=== PATIENT | female | born 1945 | race Caucasian/White ===

== ENCOUNTER 2017-01-18 14:31 | Outpatient (CLI) | payer OTHER ==
[2016-09-30 12:08] VITALS: BMI 19.7
--- NOTE | 2017-01-18 15:17 | US ---
EXAM: ULTRASOUND CAROTID DUPLEX, BILATERAL HISTORY: TIA, dizziness FINDINGS: Merino-scale ultrasound, color Doppler and spectral analysis was performed. Velocities are in meters per second. By merino scale and color Doppler imaging, there were regions of heterogeneous plaque formation identi fied within the carotid bulbs and internal carotid arteries. These regions of plaque appeared to re main less than 50% vessel diameter. RIGHT: External carotid artery peak systolic velocity: 1.1 Common carotid artery peak systolic velocity/end diastolic velocity: 0.7/0.2 Internal carotid artery peak systolic velocity: 1.0 ICA/CCA peak systolic velocity ratio: 1.4 ICA end diastolic velocity: 0.3 LEFT: External carotid artery peak systolic velocity: 0.9 Common carotid artery peak systolic velocity/end diastolic velocity: 1.0/0.3 Internal carotid artery peak systolic velocity: 1.4 ICA/CCA peak systolic velocity ratio: 1.4 ICA end diastolic velocity: 0.3 The right and left vertebral arteries were antegrade. IMPRESSION: 1. By merino scale and color Doppler imaging, there were regions of heterogeneous plaque formation id entified within the carotid bulbs and internal carotid arteries. These regions of plaque appeared t o remain less than 50% vessel diameter. 2. The left internal carotid artery peak systolic velocity of 1.4 meters per second falls within the moderate range of stenosis. Moderate indicates 50 - 69% vessel diameter. The left ICA/CCA peak sy stolic velocity ratio 1.4 falls within the mild range of stenosis. Mild indicates less than 50% ves sagrario diameter. The ratio appears to better correlate with merino scale and color Doppler imaging findi ngs although correlation with CTA neck can be considered given patient history. 3. No sonographic evidence of hemodynamically significant stenosis within the right carotid system. 4. Both vertebral arteries were antegrade.
== END 2017-01-18 14:32 | disposition home or self-care (01) ==
LOC: RAD 14:31
PROVIDERS: ATTEND Internal Medicine
DX: R42 Dizziness and giddiness (principal); Z86.73 Personal history of transient ischemic attack (TIA), and cerebral infarction without residual deficits

== ENCOUNTER 2017-02-28 06:45 | Outpatient (CLI) ==
[2016-09-30 12:08] VITALS: BMI 19.7
--- NOTE | 2017-02-28 10:32 | ECHO2D ---
Date of Exam: 02/28/17 Ordering Physician: ALAN BUCHANAN Reason for Echo: CHEST PAIN, HYPERTENSION, SOB M-Mode Normal Adult Results LV Dimensions Normal Adult Results AoV Opening excursions >1.6 >1.6 LVEDD-base- 3.5-5.8 3.9 Ao root dimensions 2.0-3.7 3.3 LVESD-base- 3.1-4.6 L. Atrium dimensions 1.9-3.8 4.0 Post. Wall thickness 0.8-1.1 1.0 IV septum (thickness) 0.7-1.2 1.1 Post. Wall excursion 0.72-1.3 Septal motion NORMAL Systolic motion R. Ventricular cavity 1.5-2.0 NORMAL LVEF 60% 59% Paradoxical septal wall motion NORMAL 2-D : MILDLY ENLARGED LEFT ATRIAL CAVITY--NORMAL LEFT VENTRICULAR CONTRACTILITY- -NO EFFUSION, NO THROMBUS, NORMAL LEFT VENTRICLE SIZE M-MODE: MV: NORMAL AV: NORMAL TV: NORMAL PV: CHAMBER SIZE: MILDLY ENLARGED LEFT ATRIAL CAVITY WALL MOTION: NORMAL PERICARDIUM: NORMAL INTERPRETATION: 1. MILDLY ENLARGED LEFT ATRIAL CAVITY 2. NORMAL LEFT VENTRICULAR CONTRACTILITY 3. FLORES LEFT VENTRICLE SIZE MTDD
== END 2017-02-28 06:46 | disposition home or self-care (01) ==
LOC: CAR 06:45
PROVIDERS: ATTEND Internal Medicine
DX: R07.9 Chest pain, unspecified (principal); I10 Essential (primary) hypertension; J44.9 Chronic obstructive pulmonary disease, unspecified
CPT/HCPCS: 93005; 93010

== ENCOUNTER 2017-03-02 06:42 | Outpatient (CLI) ==
[2016-09-30 12:08] VITALS: BMI 19.7
--- NOTE | 2017-03-02 09:22 | STRESSMOD ---
Ordering Physician: ALAN BUCHANAN Date of Test: 03/02/17 Medical History: CHEST PAIN, HTN, SOB, CAD Current Medications: CELEBREX, IMITREX, ESGIC, SOMA, LIBRAX Physical Findings: S1, S2, NO S3 Resting EKG: SINUS RHYTHM, NO ACUTE CHANGES Target Heart Rate: 124/146 STAGE MPH/GRADE HEART RATE BPM BLOOD PRESSURE mmhg RHYTHM S-T SEGMENT UP DOWN SYMPTOMS,COMMENTS At Rest 68 118/62 SR X NONE 1 1.7/0% 100 138/80 SR X NONE 2 1.7/5% 3 1.7/10% 4 2.5/12% 5 3.4/14% 6 4.2/16% 7 5.18% Immediately after 125 150/82 SR X NONE Total Time: 6:31 Maximum Heart Rate Reached: 125 Reason for Termination: FATIGUE 3 MIN POST EXERCISE: HR 85/BPM, BP 122/70 MMHG INTERPRETATION: 97% OXYGEN SATURATION WITH EXERCISE ON ROOM AIR METS 4.0 1. NO EVIDENCE OF ISCHEMIA BY ST-T WAVE CHANGES 2. NO CHEST PAIN OR CHEST DISCOMFORT 3. BLOOD PRESSURE RESPONSE: NORMAL 4. NO ARRHYTHMIAS NORMAL LEFT VENTRICULAR CONTRACTILITY--RESTING AND POST EXERCISE MTDD
--- NOTE | 2017-03-02 10:45 | NM ---
Cardiac Stress Test HISTORY: Chest pain. Hypertension. Chronic obstructive pulmonary disease. COMPARISON: 04/09/2015. TECHNIQUE: Resting: The patient was injected with 4.1 mCi of 99m technetium Sestamibi (Cardiolite) intravenous ly after which a "resting" SPECT study of the heart was performed. Stress: The patient was stressed using a Naseem protocol and at the appropriate time injected with 2 5.9 mCi of 99m technetium Sestamibi (Cardiolite) after which a "stress" SPECT study of the heart was performed. Gated images of the heart were also obtained to assess wall motion and calculate ejectio n fraction. For details of the stress protocol employed, reference is made to the separate report o f the performing physician. FINDINGS: The stress perfusion images demonstrate a generally uniform distribution of activity in t he left ventricular myocardium. The resting perfusion images demonstrate no evidence of significant redistribution/ischemia. The left ventricular ejection fraction (LVEF) is 69%. The previous ejection fraction was 57 %. The left ventricular wall motion is within normal limits. IMPRESSION: 1. Left ventricular myocardial perfusion is within normal limits. 2. The left ventricular ejection fraction (LVEF) is 69%. The previous ejection fraction was 57 %. 3. The left ventricular wall motion is within normal limits.
--- NOTE | 2017-03-02 12:22 | ECHOSTRESS ---
Date of Exam: 03/02/17 Ordering Physician: ALAN BUCHANAN Reason for Echo: CHEST PAIN, HYPERTENSION, SOB, STRESS TEST--NO ISCHEMIA M-Mode Normal Adult Results LV Dimensions Normal Adult Results AoV Opening excursions >1.6 LVEDD-base- 3.5-5.8 Ao root dimensions 2.0-3.7 LVESD-base- 3.1-4.6 L. Atrium dimensions 1.9-3.8 Post. Wall thickness 0.8-1.1 IV septum (thickness) 0.7-1.2 Post. Wall excursion 0.72-1.3 Septal motion Systolic motion R. Ventricular cavity 1.5-2.0 LVEF 60% Paradoxical septal wall motion 2-D: NORMAL LEFT VENTRICULAR CONTRACTILITY--RESTING AND POST EXERCISE M-MODE: MV: AV: TV: PV: CHAMBER SIZE: WALL MOTION: NORMAL LEFT VENTRICULAR CONTRACTILITY--RESTING AND POST EXERCISE PERICARDIUM: INTERPRETATION: 1. NORMAL LEFT VENTRICULAR CONTRACTILITY--RESTING AND POST EXERCISE MTDD
== END 2017-03-02 06:43 | disposition home or self-care (01) ==
LOC: CAR 06:42
PROVIDERS: ATTEND Internal Medicine
DX: R07.9 Chest pain, unspecified (principal); I10 Essential (primary) hypertension; J44.9 Chronic obstructive pulmonary disease, unspecified

== ENCOUNTER 2017-05-19 02:58 | Emergency (ER) | payer OTHER ==
[2017-05-19 03:09] VITALS: BP 176/73; TEMP 98.1
[2017-05-19] MEDS ORDERED: SODIUM CHLORIDE 1,000 ML IV STA (03:20)
[2017-05-19] MEDS ORDERED: DILAUDID 1 MG/ML SYRINGE IVP STA (03:20)
[2017-05-19] MEDS ORDERED: ZOFRAN 4 MG/2 ML IVP STA (03:20)
[2017-05-19 03:33] LABS: BASOPHILS # (AUTO) 0.1 K/uL (0-0.2); BASOPHILS % (AUTO) 0.5 % (0.0-3.0); EOSINOPHILS # (AUTO) 0.2 K/ul (0.0-0.7); EOSINOPHILS % (AUTO) 1.9 % (0.0-7.0); HEMATOCRIT 35.5 % (37.0-47.0); HEMOGLOBIN 12.2 g/dl (12.0-16.0); IMMATURE GRANULOCYTE % (AUTO) 0.3 % (0.0-5.0); LYMPHOCYTES # (AUTO) 2.7 K/uL (0.60-3.4); LYMPHOCYTES % (AUTO) 22.9 (10.0-50.0); MEAN CORPUSCULAR HEMOGLOBIN 32.4 pg (27.0-31.0); MEAN CORPUSCULAR HGB CONC 34.4 (31.8-35.4); MEAN CORPUSCULAR VOLUME 94.4 fl (81.0-99.0); MONOCYTES # (AUTO) 0.8 K/uL (0.4-2.0); MONOCYTES % (AUTO) 6.5 (0-10); NEUTROPHILS # (AUTO) 8.1 K/ul (2.0-6.9); NEUTROPHILS % (AUTO) 67.9; PLATELET COUNT 170 10^3/uL (140-440); RED BLOOD COUNT 3.76 10^6/ul (4.20-5.40); WHITE BLOOD COUNT 11.86 K/ul (4.6-10.2)
[2017-05-19 04:00] LABS: ALANINE AMINOTRANSFERASE 11 U/L (12-78); ALBUMIN 3.7 g/dL (3.4-5.0); ALBUMIN/GLOBULIN RATIO 1.16; ALKALINE PHOSPHATASE 120 U/L (53-141); AMYLASE 60 U/L (25-115); ANION GAP 14.9; ASPARTATE AMINO TRANSFERASE 16 U/L (15-37); BILIRUBIN,TOTAL 0.14 mg/dL (0.00-1.20); BLOOD UREA NITROGEN 8 mg/dL (7-18); CARBON DIOXIDE 23 mmol/L (23-31); CHLORIDE 103 mmol/L (98-107); CREATINE KINASE 56 U/L; CREATININE 0.64 mg/dL (0.60-1.30); GLUCOSE 82 mg/dL (82-115); LIPASE 31 U/L (8-78); POTASSIUM 3.9 mmol/L (3.5-5.10); SODIUM 137 mmol/L (136-145); TOTAL PROTEIN 6.9 g/dL (5.8-8.1)
[2017-05-19 04:04] LABS: ESR INTERNAL QC INTERNAL QC VALID
[2017-05-19 04:05] LABS: ERYTHROCYTE SEDIMENTATION RATE 20 mm/hr (0-20)
[2017-05-19 04:59] LABS: BILIRUBIN,URINE Negative (NEGATIVE); KETONES,URINE Negative (NEGATIVE); LEUKOCYTE ESTERASE ,URINE Negative (NEGATIVE); NITRITE,URINE Negative (NEGATIVE); PROTEIN,URINE Negative (NEGATIVE); URINE, BLOOD Negative (NEGATIVE)
[2017-05-19 05:00] LABS: ADD URINE MICROSCOPIC NO
--- NOTE | 2017-05-19 05:00 | CT ---
EXAM: CT of the abdomen and pelvis without contrast. HISTORY: Abdominal pain. Surgical history includes appendectomy. PROCEDURE: Contiguous axial CT images of the abdomen and pelvis without contrast with coronal and s agittal reformats. FINDINGS: Comparison made with CT abdomen/pelvis of 05/17/2009. The liver, gallbladder, pancreas, sp samira, adrenal glands and kidneys are normal in appearance. The abdominal aorta is within normal limi ts in diameter. There are atherosclerotic calcifications in the abdominal aorta and bilateral iliac arteries. There are surgical sutures along the margin of a patulous segment of small bowel in the a nterior abdomen. There is an anterior abdominal wall hernia measuring 5.5 x 2 cm containing the ant erior wall of the patulous segment of small bowel with no evidence of obstruction or incarceration. The appendix is surgically absent. There is a partial colectomy. No free fluid or free air in the a bdomen or pelvis. The bladder is adequately filled with no abnormality identified. The uterus is mejia rgically absent. There are degenerative changes in the spine. There is a right iliac donor site. Impression: Anterior abdominal wall hernia measuring 5.5 x 2 cm containing the anterior wall of a p ostoperative patulous segment of small bowel with no evidence of obstruction or incarceration. Operative changes involving the small bowel and colon as described. Appendectomy. Hysterectomy.
--- NOTE | 2017-05-19 06:02 | ED.PDOC ---
General ED Provider: Dr. YOLANDE SUNSHINE-ER Chief Complaint: Abdominal Pain Stated Complaint: genesis been doing a lot of pulling and tugging and now im hurting Time Seen by Physician: 03:00 Mode of Arrival: Walk-In Information Source: Patient Exam Limitations: No limitations Primary Care Provider: ALAN BELLA Nursing and Triage Documentation Reviewed and Agree: Yes GI Complaint Exam - Abdominal Pain Complaint/Exam Onset: Gradual Duration: several hours Symptoms Are: Still present Timing: Intermittent Initial Severity: Mild Current Severity: Moderate Location of Pain: Discrete, RUQ Radiates To: Denies: Chest, Back, Flank, RLQ, Inguinal Character: Reports: Dull, Aching Aggravating: Reports: Movement Alleviating: Reports: Rest Associated Signs and Symptoms: Denies: Diaphoresis, Fever, Cough, Chest pain, Dizziness, Back pain, Constipation, Blood in stool, Dysuria, Urinary frequency, Decreased urine output, Decreased appetite, Vaginal bleeding, Vaginal discharge , Nausea, Vomiting, Diarrhea, Sore throat, Decreased activity Related Surgical History: Reports: Bowel Resection Patient Rh Status: Unknown Abdominal Findings: Present: Hernia Differential Diagnoses: Bowel Obstruction, Diverticulitis, Gastroenteritis, Pancreatitis, Irritable Bowel Syndrome Quality Indicator For Non-Traumatic Chest Pain/Syncope: EKG Performed Review of Systems - Review Of Systems Constitutional: Reports: No symptoms Eyes: Reports: No symptoms Ears, Nose, Mouth, Throat: Reports: No symptoms Respiratory: Reports: No symptoms Cardiac: Reports: No symptoms GI: Reports: Abdominal pain, Nausea : Reports: No symptoms Musculoskeletal: Reports: No symptoms Skin: Reports: No symptoms Neurological: Reports: No symptoms Endocrine: Reports: No symptoms Hematologic/Lymphatic: Reports: No symptoms All Other Systems: Reviewed and Negative Past Medical History - Past Medical History Previously Healthy: Yes Endocrine: Reports: Unknown Cardiovascular: Reports: Unknown Respiratory: Reports: Unknown Hematological: Reports: Unknown Gastrointestinal: Reports: Unknown Genitourinary: Reports: Unknown Neuro/Psych: Reports: Unknown Musculoskeletal: Reports: Unknown Cancer: Reports: Unknown Last Menstrual Period: 1987 - Surgical History General Surgical History: Reports: Unknown - Family History Family History: Reports: Unknown - Social History Smoking Status: Current every day smoker Hx Substance Use: No Alcohol Screening: None Lives: Alone, With family - Immunizations Tetanus Shot up to Date: Yes Physical Exam - Physical Exam Appearance: Well-appearing Pain Distress: Moderate Eyes: GOGO, EOMI, Conjunctiva clear ENT: Ears normal, Nose normal, Oropharynx normal Neck: Supple Respiratory: Airway patent, Breath sounds clear, Breath sounds equal, Respirations nonlabored Cardiovascular: RRR, Pulses normal, No rub, No murmur GI/: Soft, Nontender, No masses, Bowel sounds normal, No Organomegaly, Tender (hernia--easily reduced) Musculoskeletal: Normal strength, ROM intact, No edema, No calf tenderness Skin: Warm, Dry, Normal color Neurological: Sensation intact, Motor intact, Reflexes intact, Cranial nerves intact, Alert, Oriented Psychiatric: Affect appropriate, Mood appropriate, Anxious Interpretation - Radiology Interpretation Radiology Interpretation By: Radiologist Radiology Results: Positive Exam Interpreted: CT Scan ("abd wall hernia--no obstruction or incarceration") Re-Evaluation - Re-Evaluation Time of Re-Evaluation: 06:03 Status: Improved Vital Signs Stable: Yes Pain Level: 0 Appearance: NAD Lungs: Clear Skin: Warm and Dry Neuro: Alert and Oriented X3 CV: RRR Critical Care Note - Critical Care Note Total Time (mins): 0 Course - Course Hematology/Chemistry: 05/19/17 03:30 05/19/17 03:30 Orders, Labs, Meds: Lab Review 05/19/17 05/19/17 03:30 04:35 WBC 11.86 H RBC 3.76 L Hgb 12.2 Hct 35.5 L MCV 94.4 MCH 32.4 H MCHC 34.4 RDW Coeff of Torey 13.2 Plt Count 170 Immature Gran % (Auto) 0.3 Neut % (Auto) 67.9 Lymph % (Auto) 22.9 [place] % (Auto) 6.5 Eos % (Auto) 1.9 Baso % (Auto) 0.5 Immature Gran # (Auto) 0.0 Neut # 8.1 H Lymph # 2.7 [place] # 0.8 Eos # 0.2 Baso # 0.1 ESR 20 Sodium 137 Potassium 3.9 Chloride 103 Carbon Dioxide 23 Anion Gap 14.9 BUN 8 Creatinine 0.64 Estimated GFR (MDRD) 91.00 BUN/Creatinine Ratio 12.50 Glucose 82 Calcium 9.0 Total Bilirubin 0.14 AST 16 ALT 11 L Alkaline Phosphatase 120 Total Creatine Kinase 56 Troponin I < 0.0100 Total Protein 6.9 Albumin 3.7 Globulin 3.2 Albumin/Globulin Ratio 1.16 Amylase 60 Lipase 31 Urine Color Yellow Urine Clarity Clear Urine pH 7.0 Ur Specific [place] 1.010 Urine Protein Negative Urine Glucose (UA) Negative Urine Ketones Negative Urine Blood Negative Urine Nitrite Negative Urine Bilirubin Negative Urine Urobilinogen 0.2 Ur Leukocyte Esterase Negative Orders Category Date Time Status EKG-(ED ONLY) Stat CARDIO 05/19/17 03:19 Completed ED IV/MEDIPORT/POWERPORT .ONCE EMERGENCY 05/19/17 03:20 Active AMYLASE Stat LAB 05/19/17 03:30 Completed CBC W/ AUTO DIFF Stat LAB 05/19/17 03:30 Completed COMPREHENSIVE METABOLIC PANEL Stat LAB 05/19/17 03:30 Completed CREATINE KINASE Stat LAB 05/19/17 03:30 Completed ESR Stat LAB 05/19/17 03:30 Completed LIPASE Stat LAB 05/19/17 03:30 Completed TROPONIN I Stat LAB 05/19/17 03:30 Completed URINALYSIS C & S IF INDICATED Stat LAB 05/19/17 04:35 Completed 0.9 % Sodium Chloride [Saline Flush] MEDS 05/19/17 03:20 Ordered 1 syr IVF PRN PRN Hydromorphone HCl [Dilaudid 1 mg/ml Syringe] MEDS 05/19/17 03:20 Discontinued 1 mg IVP ONCE STA Ondansetron HCl/Pf [Zofran 4 mg/2 ml] MEDS 05/19/17 03:20 Discontinued 4 mg IVP ONCE STA Sodium Chloride 0.9% [Sodium Chloride] 1,000 ml MEDS 05/19/17 03:20 Active IV 100 mls/hr CT ABDOMEN/PELVIS WO CONTRAST Stat RADS 05/19/17 03:20 Completed Medications Generic Name Dose Route Start Last Admin Trade Name Freq PRN Reason Stop Dose Admin Sodium Chloride 1,000 mls @ 100 mls/hr 05/19/17 03:20 05/19/17 04:30 Sodium Chloride IV 05/19/17 13:19 100 mls/hr .Q10H STA Administration Sodium Chloride 1 syr 05/19/17 03:20 Saline Flush IVF PRN PRN To flush IV Discontinued Medications Generic Name Dose Route Start Last Admin Trade Name Freq PRN Reason Stop Dose Admin Hydromorphone HCl 1 mg 05/19/17 03:20 05/19/17 03:56 Dilaudid 1 Mg/Ml Syringe IVP 05/19/17 03:21 1 mg ONCE STA Administration Ondansetron HCl 4 mg 05/19/17 03:20 05/19/17 03:56 Zofran 4 Mg/2 Ml IVP 05/19/17 03:21 4 mg ONCE STA Administration Vital Signs: Temp Pulse Resp BP Pulse Ox 05/19/17 02:58 98.1 F 77 20 176/73 H 96 Departure - Departure Time of Disposition: 06:03 Disposition: HOME SELF-CARE Discharge Problem: Abdominal wall hernia Instructions: Ventral Hernia (ED) Condition: Good Pt referred to PMD for follow-up: Yes Additional Instructions: avoid lifting, straining or tugging--see dr bella next week for surgical opinion --return if any fever, increased pain or vomiting Allergies/Adverse Reactions: Allergies Penicillins Allergy (Mild, Verified 05/19/17 03:29) Difficulty Swallowing Iodinated Contrast- Oral and IV Dye Adverse Reaction (Verified 05/19/17 03:29) Difficulty Swallowing Home Medications: Ambulatory Orders Butalb/Acetaminophen/Caffeine [Fioricet] 1 each PO TID PRN 09/30/16 Aspirin [Ecotrin] 81 mg PO DAILY 05/19/17 Atorvastatin Calcium [Lipitor] 40 mg PO DAILY 05/19/17 Calcium Carbonate [Calcium] 500 mg PO DAILY 05/19/17 Carisoprodol [Soma] 0.5 tab PO BEDTIME PRN 05/19/17 Celecoxib [Celebrex] 200 mg PO DIRECTED 05/19/17 Chlordiazepoxide/Clidinium Br [Librax 2.5/5 mg] 1 cap PO DAILY PRN 05/19/17 Docusate Sodium [Stool Softener] 100 mg PO DAILY PRN 05/19/17 Famotidine [Pepcid] 20 mg PO DAILY 05/19/17 Guaifenesin [Mucinex] 600 mg PO Q12HR PRN 05/19/17 Hydrocodone Bit/Acetaminophen [Blount 7.5-325] 7.5 mg PO TID PRN 05/19/17 Krill/Om-3/Dha/Epa/Phospho/Ast [Megared [place]-3 Krill Oil Sfgl] 1 each PO DAILY 05/19/17 Multivitamin 1 cap PO DAILY 05/19/17 P-Ephed HCl/Acetaminophen/Cp [Allergy Sinus-D Caplet] 1 tab PO DAILY PRN Sumatriptan Succinate [Imitrex] 50 mg PO DAILY PRN 05/19/17 Tetrahydrozoline HCl [Visine] 1 drop EACHEYE DAILY PRN 05/19/17 Trolamine Salicylate [Aspercreme] 177.4 ml TP DIRECTED 05/19/17 Disposition Discussed With: Patient
== END 2017-05-19 06:40 | disposition home or self-care (01) ==
LOC: ED 02:58
DX: K43.9 Ventral hernia without obstruction or gangrene (principal); Z79.899 Other long term (current) drug therapy; F17.210 Nicotine dependence, cigarettes, uncomplicated
CPT/HCPCS: 36415; 80053; 81001; 82150; 82550; 83690; 84484; 85025; 85651; 93005; 93010; 96360; 96361; 96375; 99283

== ENCOUNTER 2017-08-20 11:03 | Outpatient (CLI) ==
--- NOTE | 2017-08-20 14:56 | MAMMO ---
EXAM: Bilateral digital screening mammogram (2-D and 3-D) History: Screening Comparison: Bilateral mammogram 08/30/2016 Findings: MLO and CC views of bilateral breasts demonstrate scattered fibroglandular breast parenchy ma. CAD was reviewed by the radiologist. Tomosynthesis was performed. There are no dominant masses , no suspicious microcalcifications and no architectural distortions Impression: Stable negative mammogram. Recommend followup routine screening mammography in 1 year. BIRADS 1
== END 2017-08-20 11:04 | disposition home or self-care (01) ==
LOC: RAD 11:03
PROVIDERS: ATTEND Internal Medicine
DX: Z12.31 Encounter for screening mammogram for malignant neoplasm of breast (principal)
CPT/HCPCS: 77067

== ENCOUNTER 2018-03-19 13:23 | Outpatient (POV) | payer OTHER | END 2018-03-19 17:00 | LOC: OUTPT 13:23 | PROVIDERS: ATTEND Otolaryngology | DX: H91.90 Unspecified hearing loss, unspecified ear (principal) ==

== ENCOUNTER 2018-04-17 13:11 | Outpatient (CLI) | payer OTHER ==
--- NOTE | 2018-04-17 14:46 | US ---
EXAM: Bilateral carotid artery Doppler History: Dizziness. Comparison: Carotid Doppler 01/18/2017 Technique: Multiple sonographic images through the bilateral internal carotid arteries were obtained . Color duplex Doppler was used to interrogate vascular flow. Findings: The right ICA peak systolic velocity is within normal limits measuring 80 cm/sec. The right ICA/cca PSV ratio is normal at 1.1. The right vertebral artery is patent and demonstrates antegrade flow. T here is moderate heterogeneous plaque buildup within the right carotid bulb and proximal right media intern al carotid artery seen on merino scale imaging. The left ICA peak systolic velocity is within normal limits measuring 80 cm/sec. The left ICA/cca PS V ratio is normal at 0.90. The left vertebral artery is patent and demonstrates antegrade flow. The re is moderate plaque buildup seen within the left carotid bulb and proximal left internal carotid ar grupo and merino scale imaging. Impression: Velocities and ratios indicate no significant hemodynamic stenosis of the bilateral inte rnal carotid arteries. Merino scale findings indicate moderate plaque buildup. Consider correlation wit h CTA of the neck for clarification.
== END 2018-04-17 13:12 | disposition home or self-care (01) ==
LOC: RAD 13:11
PROVIDERS: ATTEND Internal Medicine
DX: R42 Dizziness and giddiness (principal)

== ENCOUNTER 2018-04-23 08:24 | Outpatient (CLI) ==
--- NOTE | 2018-04-24 13:01 | MRI ---
EXAM: MRA neck (chronic) with and without contrast. HISTORY: Abnormal carotid ultrasound. Patient allergic to CT contrast. COMPARISON: Carotid artery duplex ultrasound 04/17/2018. TECHNIQUE: MR angiography was acquired through the carotid arteries before and after administration of intravenous contrast. Degree of stenosis determined by NASCET criteria. FINDINGS: There is a normal branching pattern of the great vessels from the aortic arch. The brachi ocephalic artery and right subclavian artery have no flow-limiting stenoses. The left subclavian art kori has a mild proximal stenosis 1.7 cm from the origin and a moderate stenosis 3.5 cm from the origi n. The [id number] left subclavian artery is obscured. The right common carotid artery has no hemodynamically significant stenoses from the origin to the bi furcation. There is minor irregular narrowing of the right common carotid artery bulb without flow-l imiting stenosis. The right internal carotid artery has no hemodynamically significant stenoses from the origin to the skull base. There is mild tapering of the proximal right internal carotid artery a rtery 1.5 cm beyond the bulb. The left common carotid artery has minor narrowing proximally just beyond the origin and mild irregul ar narrowing in the proximal left common carotid 1.5 cm from the origin. There is a mild 20-30% sten osis in the mid left common carotid artery and there is a mild 20-30% stenosis in the distal left com mon carotid artery 1 cm from the bulb with mild post stenotic dilatation that extends into the bulb. However, there are no flow-limiting stenoses in the left common carotid artery from the origin to th e left common carotid artery bifurcation. The left internal carotid artery has no flow-limiting sten oses from the origin to the skull base. The right vertebral artery is dominant to the left and has no flow-limiting stenoses from the origin to the skull base. The proximal right vertebral artery is tortuous and in the proximal curve, there is mild to moderate narrowing of the flow void that may be artifactually accentuated by turbulent michelle w and slightly more distally there is a second mild stenosis that also may be artifactually accentuat ed by turbulent flow. The left vertebral artery is tiny and is intermittently visualized from just beyond the origin for th e proximal 1.7 cm. Probably these discontinuities in the flow void represent high-grade stenoses or near occlusions which are accentuated by small vessel size and slow flow. Neck CTA with premedicatio n for contrast allergy may be considered to further define the anatomy. The mid to distal distal lef t vertebral artery gradually enlarges to a small left vertebral artery which has mild and mild to mod erate irregular stenoses. The distal left vertebral artery has mild and mild to moderate irregular n arrowing at C1-2 that may be artifactually accentuated by vessel tortuosity and there is a a high-gra de stenosis or near occlusion of the left vertebral artery at the craniocervical junction to the left vertebral artery remains tiny in the posterior fossa to the distal 5 mm where the flow void is incom pletely visualized to just proximal to the vertebrobasilar junction probably this represents a distal high-grade stenosis or near occlusion which is artifactually accentuated by small vessel size and sl ow flow. The right vertebral artery provides a dominant blood supply to the basilar artery. IMPRESSION: 1. No flow-limiting stenoses are present in the common carotid arteries, their bifurcations or in th e internal carotid arteries from their origins to the skull base. 2. No flow-limiting stenoses right vertebral artery. 3. Tiny left vertebral artery which is intermittently visualized and has probable multiple proximal and distal high- grade stenoses or near occlusions. Focal discontinuities in the left vertebral artery flow void are identified in these areas of probable high-grade stenoses which are considered artifactual due to sma ll vessel size and slow flow.
== END 2018-04-23 08:25 | disposition home or self-care (01) ==
LOC: RAD 08:24
PROVIDERS: ATTEND Internal Medicine
DX: R93.1 Abnormal findings on diagnostic imaging of heart and coronary circulation (principal)
CPT/HCPCS: 36415; 82565

== ENCOUNTER 2018-07-10 16:12 | Outpatient (CLI) | payer OTHER ==
--- NOTE | 2018-07-10 16:42 | DI ---
Exam: Three views of the right foot. Comparison: None available. Reason for exam: Right great toe pain. FINDINGS: There is a tiny cortical irregularity seen in the right first proximal phalanx adjacent to the metatarsal phalangeal joint space. Otherwise, no acute fracture or malalignment is seen. Degen erative disease is seen with joint space narrowing. Impression: 1. Tiny well marginated cortical irregularity adjacent to the right first metatarsal phalangeal joint space may be degenerative. Cannot rule out the possibility of a small fracture. Recommend correlat ion with the site of patient's pain and a history of trauma. 2. Mild to moderate degenerative disease
--- NOTE | 2018-07-10 16:43 | DI ---
Exam: Three views of the left foot. Comparison: None available. Reason for exam: Left heel pain. FINDINGS: No obvious fracture or malalignment. The joint spaces appear well maintained. No unexpla ined calcific soft tissue density or radiopaque retained foreign body. No sclerotic changes are seen in the calcaneus. Impression: No obvious fracture or dislocation is seen in the left foot. No osseous changes are seen in the left calcaneus consistent with a fracture.
== END 2018-07-10 16:13 | disposition home or self-care (01) ==
LOC: RAD 16:12
PROVIDERS: ATTEND Internal Medicine
DX: M79.672 Pain in left foot (principal); M79.674 Pain in right toe(s)

== ENCOUNTER 2018-08-21 09:22 | Outpatient (CLI) ==
--- NOTE | 2018-08-21 10:17 | MAMMO ---
EXAM: Digital screening mammogram with tomosynthesis HISTORY: Screening COMPARISON: 08/20/2017 FINDINGS: Digital MLO and CC views of the right and left breast were performed. Tomosynthesis was performed. Computer aided detection utilized. There are scattered fibroglandular densities. There is no evidence for mass, asymmetry, distortion, or suspicious calcifications in either breast. IMPRESSION: 1. No evidence of malignancy in the right or left breast. 2. Annual screening mammogram is recommended in one year. BIRADS category 1, negative examination
== END 2018-08-21 09:23 | disposition home or self-care (01) ==
LOC: RAD 09:22
PROVIDERS: ATTEND Internal Medicine
DX: Z12.31 Encounter for screening mammogram for malignant neoplasm of breast (principal)
CPT/HCPCS: 77067

== ENCOUNTER 2019-07-15 11:14 | Outpatient (CLI) | END 2019-07-15 11:15 | disposition home or self-care (01) | LOC: LAB 11:14 | PROVIDERS: ATTEND Internal Medicine Gastroenterology | DX: K29.70 Gastritis, unspecified, without bleeding (principal); B96.81 Helicobacter pylori [H. pylori] as the cause of diseases classified elsewhere | CPT/HCPCS: 36415; 85025; 85027 ==